=== PATIENT | male | born 1985 | race Two or more races ===

== ENCOUNTER 2018-01-26 12:56 | Emergency (ER) | payer OTHER ==
[~2018-01-26] VITALS: Ht 170.2 cm; Wt 70.3 kg
[~2018-01-26 12:56] MED LIST: ALLEGRA ALLERG180 MG PO; PROTONIX40 MG PO; RELAGESIC TABL1 EACH PO; ZANTAC300 MG PO; ZOFRAN4 MG PO
== END 2018-01-26 21:29 | disposition home or self-care (01) ==
LOC: ER 12:56
DX: K29.60 Other gastritis without bleeding (principal)

== ENCOUNTER 2022-12-17 10:48 | Emergency (ER) | payer OTHER ==
[~2022-12-17] VITALS: Ht 167.6 cm; Wt 81.6 kg
[2022-12-17 13:04] LABS: HEMATOCRIT 50.6 % (39.0-48.0); HEMOGLOBIN 17.1 g/dL (13-16.00); MEAN CELL VOLUME 87.1 fL (80.0-100.00); MEAN CORPUSCULAR HEMOGLOBIN 29.4 pg (27.00-32.0); MEAN CORPUSCULAR HGB CONC 33.8 g/dl (32.0-36.0); PLATELET COUNT 240 K/uL (150-450); RED BLOOD COUNT 5.82 M/uL (4.00-6.00); RED CELL DISTRIBUTION WIDTH 12.9 % (11.5-14.5)
[2022-12-17 13:26] LABS: ALBUMIN 4.3 gm/dL (3.4-5.0); BILIRUBIN TOTAL 1.03 mg/dL (0.3-1.2); CALCIUM 10.1 mg/dL (8.5-10.1); CREATININE SERUM 1.23 mg/dL (0.70-1.30); GFR 66.96; GLOBULINA 3.7 G/DL (2.4-3.5); POTASSIUM 3.93 mEq/L (3.5-5.1)
[2022-12-17 15:42] LABS: URINE APPEARANCE Cloudy; URINE BILIRRUBIN Negative (NEGATIVE); URINE BLOOD Negative; URINE COLOR Dark Yellow; URINE GLUCOSE Negative (NEGATIVE); URINE LEUKOCYTE Trace; URINE NITRATE Negative; URINE PROTEIN 30 (NEGATIVE)
[2022-12-17 15:45] LABS: URINE BACTERIA 7.5 uL (0.0-1933); URINE EPITHELIAL CELLS 2.6 uL (0.0-38.8); URINE RBC 4.5 uL (0.0-20.8); URINE WBC 2.7 uL (0.0-23.2)
== END 2022-12-17 16:20 | disposition home or self-care (01) ==
LOC: ER 10:48
PROVIDERS: General Practice
DX: K29.70 Gastritis, unspecified, without bleeding (principal); Z88.6 Allergy status to analgesic agent